=== PATIENT | male | born 1940 | race Caucasian/White ===

== ENCOUNTER 2019-06-22 20:42 | Observation (INO) ==
[2019-06-22] MEDS ORDERED: FAMOTIDINE 20MG/5ML IV PUSH IV STA (20:59)
--- NOTE | 2019-06-22 21:17 | Emergency Department Note ---
History of Present Illness General Chief complaint: Cardiac Assessment Stated complaint: CHEST PAIN, CARDIAC HX Time Seen by Provider: 06/22/19 20:52 Source: patient Mode of arrival: ambulatory Limitations: no limitations History of Present Illness Provider complaint: chest pain Onset (ago): hour(s) 1 Location: chest Radiation: neck and extremity Severity: moderate and similar to prior episodes Pain Consistency: + constant Maximum Pain Intensity: 8 Current Pain Intensity: 0 Quality: + sharp and + constant Relieved By: + other (nitro) Exacerbated By: + none Associated symptoms: + diaphoresis Treatments prior to arrival: other (nitro x 2) This is a 79-year-old male with a hx CAD s/p stenting, complaining of acute onset of sharp and severe chest pain today with radiation into the neck and jaw and radiation into the right upper extremity. No radiation of the back. Patient states a feeling slightly "queasy" and "clammy". No overt nausea or vomiting, no dizziness or lightheadedness. Patient was sitting and reading at the onset of pain. Patient had walked the dog earlier in the day without any symptoms during exertion. Patient has had 2 heart attacks according to his report and has multiple stents. Patient does follow with Dr. Chapman periodically. No other recent change in diet or activity. No recent medication changes. No recent illness including fevers or chills. Patient took 1 nitro understanding at home and waited 5 minutes and then took a second. By the time of his arrival here, patient states the pain had abated. Patient states he is currently pain-free. Denies any recent food or drink that could induce GERD/reflux. No prior history of significant recurrent reflux symptoms. Home Medications Home Medications Medication Instructions Recorded Confirmed Type ICaps AREDS 1 cap PO BID 06/22/19 06/22/19 History acetaminophen [Tylenol] 650 mg PO Q6H PRN 06/22/19 06/22/19 History amlodipine 2.5 mg PO DAILY 06/22/19 06/22/19 History aspirin [Aspir-81] 81 mg PO DAILY 06/22/19 06/22/19 History atorvastatin 40 mg PO HS 06/22/19 06/22/19 History clopidogrel 75 mg PO DAILY 06/22/19 06/22/19 History levothyroxine 137 mcg PO DAILY 06/22/19 06/22/19 History lisinopril 10 mg PO DAILY 06/22/19 06/22/19 History metoprolol succinate 50 mg PO DAILY 06/22/19 06/22/19 History nitroglycerin [Nitrostat] 0.4 mg SUBLINGUAL UD 06/22/19 06/22/19 History ranitidine HCl 75 mg PO DAILY PRN 06/22/19 06/22/19 History triamcinolone acetonide 1 applic TOPICAL BID PRN 06/22/19 06/22/19 History Allergies Allergy/AdvReac Type Severity Reaction Status Date / Time No Known Allergies Allergy Unverified 06/22/19 22:45 Past Med/Surg History Medical History CAD (coronary artery disease) Social History Preferred Language: [place] Beliefs That Will Affect Care: None Current Living Situation: Spouse Other Information That Helps Us Care for You: No Feels Safe at Home: Yes Safety Concerns: Feels Safe At This Time Smoking Status: Former smoker Hx Alcohol Use: Yes Alcohol type: beer Hx Substance Use: No Review of Systems See HPI for pertinent positives & negatives. and A total of 10 systems reviewed and were otherwise negative Physical Exam Vital Signs Vital Signs - 24 hr 06/22/19 20:47 06/22/19 21:08 06/22/19 21:12 Sepsis Recent Fever Within 48 Hours No Sepsis Action Taken by Nursing No Action Required Pulse Rate 73 72 71 Pulse Rate from SpO2 Sensor 72 73 Pulse Rhythm Regular Pulse Strength Normal Respiratory Rate 18 23 22 Respiratory Effort / Characteristics Non-Labored Spontaneous Respiratory Depth Normal Respiratory Pattern Regular Blood Pressure 135/72 128/70 Blood Pressure Mean 93 89 Blood Pressure Position Sitting Pulse Oximetry 98 98 98 Oxygen Delivery Method Room Air 06/22/19 21:30 06/22/19 22:00 06/22/19 22:30 Sepsis Recent Fever Within 48 Hours Sepsis Action Taken by Nursing Pulse Rate 66 67 58 L Pulse Rate from SpO2 Sensor 65 66 59 L Pulse Rhythm Pulse Strength Respiratory Rate 24 22 28 H Respiratory Effort / Characteristics Respiratory Depth Respiratory Pattern Blood Pressure 110/66 116/70 139/72 Blood Pressure Mean 80 85 94 Blood Pressure Position Pulse Oximetry 96 97 98 Oxygen Delivery Method Room Air 06/22/19 23:00 Sepsis Recent Fever Within 48 Hours Sepsis Action Taken by Nursing Pulse Rate 62 Pulse Rate from SpO2 Sensor 62 Pulse Rhythm Pulse Strength Respiratory Rate 19 Respiratory Effort / Characteristics Respiratory Depth Respiratory Pattern Blood Pressure 129/81 Blood Pressure Mean 97 Blood Pressure Position Pulse Oximetry 95 Oxygen Delivery Method Room Air GENERAL: alert, well appearing, well nourished, no distress, non-toxic EYE EXAM: normal conjunctiva, PERRL and EOM's grossly intact OROPHARYNX: no exudate, no erythema, lips, buccal mucosa, and tongue normal and mucous membranes are moist NECK: supple, no nuchal rigidity, no adenopathy, non-tender LUNGS: Clear to auscultation. Normal chest wall mechanics, no w/r/r HEART: no murmurs, S1 normal and S2 normal, no reproducible chest wall tenderness ABDOMEN: abdomen soft, non-tender, normo-active bowel sounds, no masses, no rebound or guarding. BACK: Back is symmetrical on inspection and there is no deformity, no midline tenderness, no CVA tenderness. SKIN: no rashes and no bruising UPPER EXTREMITIES: upper extremities are grossly normal. FROM, nml pulses b/l. LOWER EXTREMITIES: No pitting edema. FROM, nml pulses b/l. NEURO EXAM: Normal sensorium, cranial nerves II-XII grossly intact, normal speech, no gross weakness of arms, no gross weakness of legs. Gross sensation intact. Course 2210: Patient reevaluated at bedside. No recurrence of any pain. Updated on results so far. 2218: [facility]. Consultations Consultation #1: Case discussed with Dr. San. Time: 22:18 Administered Medications Discontinued Medications Amlodipine Besylate (Norvasc) 2.5 mg PO DAILY COLIN Stop: 07/23/19 08:59 Last Admin: 06/23/19 07:28 Dose: 2.5 mg Documented by: [id number] Aspirin (Ecotrin Ectab) 81 mg PO DAILY COLIN Stop: 07/23/19 08:59 Last Admin: 06/23/19 07:27 Dose: 81 mg Documented by: [id number] Clopidogrel Bisulfate (Plavix) 75 mg PO DAILY COLIN Stop: 07/23/19 08:59 Last Admin: 06/23/19 07:27 Dose: 75 mg Documented by: [id number] Famotidine (Pepcid 20mg Iv Push) 20 mg IV ONE STA Stop: 06/22/19 21:00 Last Admin: 06/22/19 21:21 Dose: 20 mg Documented by: [id number] Levothyroxine Sodium (Levothyroxine Sodium) 137 mcg PO DAILYBB COLIN Stop: 07/23/19 06:29 Last Admin: 06/23/19 06:18 Dose: 137 mcg Documented by: [id number] Lisinopril (Zestril) 10 mg PO DAILY COLIN Stop: 07/23/19 08:59 Last Admin: 06/23/19 07:29 Dose: 10 mg Documented by: [id number] Metoprolol Succinate (Toprol Xl) 50 mg PO DAILY COLIN Stop: 07/23/19 08:59 Last Admin: 06/23/19 07:31 Dose: 50 mg Documented by: [id number] Multivitamins/Minerals (Multivitamin W/ Minerals Tab) 1 tab PO BID COLIN Stop: 07/23/19 08:59 Last Admin: 06/23/19 07:25 Dose: 1 tab Documented by: [id number] Perflutren Lipid Microsphere (Definity) 2 ml IV ONCE ONE Stop: 06/23/19 10:07 Last Admin: 06/23/19 10:07 Dose: 2 ml Documented by: [id number] Ranitidine HCl (Zantac) 75 mg PO DAILY PRN PRN Reason: Gi Upset Stop: 07/23/19 00:12 Last Admin: 06/23/19 07:26 Dose: 75 mg Documented by: [id number] Medical Decision Making Differential Diagnosis Differential diagnoses includes but is not limited to acute coronary syndrome, myocardial infarction, pericarditis, pulmonary embolus, aortic dissection, pneumonia, pneumothorax, musculoskeletal, shingles, esophageal. Medical Records Attestation: I reviewed the patient's medical records. Home Medications Current Medication List: was personally reviewed by me Laboratory Data Attestation: I reviewed the patient's lab results. Result diagrams: 06/23/19 06:15 06/23/19 06:15 Lab Results 06/22/19 06/22/19 06/22/19 Range/Units 21:14 21:14 21:14 WBC 6.53 (4.8-10.8) K/uL RBC 4.86 (4.7-6.1) M/uL Hgb 14.9 (14.0-18.0) g/dL Hct 42.5 (42-52) % MCV 87.4 (80-100) fL MCH 30.7 (25-34) pg MCHC 35.1 (32-36) g/dL RDW Std Deviation 42.1 (36.4-46.3) fL RDW Coeff of Erma 13.2 (11.5-14.5) % Plt Count 170 (130-400) K/uL MPV 10.1 (7.4-10.4) fL Immature Gran % (Auto) 0.2 % Neut % (Auto) 44.9 % Lymph % (Auto) 41.2 % [place] % (Auto) 9.0 % Eos % (Auto) 4.4 % Baso % (Auto) 0.3 % Immature Gran # (Auto) 0.01 (0.00-0.02) K/uL Neut # (Auto) 2.93 (1.4-6.5) K/uL Lymph # (Auto) 2.69 (1.2-3.4) K/uL [place] # (Auto) 0.59 (0.11-0.59) K/uL Eos # (Auto) 0.29 (0-0.5) K/uL Baso # (Auto) 0.02 (0-0.2) K/uL PT 10.3 (9.0-12.0) Seconds INR 1.0 (0.9-1.1) D-Dimer 390 (0-500) ug/L FEU Sodium 143 (136-145) mmol/L Potassium 3.8 (3.5-5.1) mmol/L Chloride 109 H (98-107) mmol/L Carbon Dioxide 28 (21-32) mmol/L Anion Gap 7.0 (3-11) BUN 21 H (7-18) mg/dl Creatinine 1.07 (0.6-1.4) mg/dl Est Cr Clr Drug Dosing 58.9 ml/min Est GFR ( Amer) 76.1 Est GFR (Non-Af Amer) 65.7 BUN/Creatinine Ratio 19.4 (10-20) Glucose 120 H (70-99) mg/dl Calcium 9.3 (8.5-10.1) mg/dl Magnesium 2.1 (1.8-2.4) mg/dl Total Bilirubin 0.6 (0.2-1) mg/dl AST 25 (15-37) U/L ALT 31 (12-78) U/L Alkaline Phosphatase 156 H (45-117) U/L POC Troponin I (0-0.045) ng/ml Troponin I < 0.015 (0-0.045) ng/ml NT-Pro-B Natriuret Pep 69 (0-1800) pg/ml Total Protein 6.9 (6.4-8.2) gm/dl Albumin 4.0 (3.4-5.0) gm/dl Globulin 2.9 (2.5-4.0) gm/dl Albumin/Globulin Ratio 1.4 (0.9-2) Lipase 150 (73-393) U/L 06/22/19 Range/Units 21:24 WBC (4.8-10.8) K/uL RBC (4.7-6.1) M/uL Hgb (14.0-18.0) g/dL Hct (42-52) % MCV (80-100) fL MCH (25-34) pg MCHC (32-36) g/dL RDW Std Deviation (36.4-46.3) fL RDW Coeff of Erma (11.5-14.5) % Plt Count (130-400) K/uL MPV (7.4-10.4) fL Immature Gran % (Auto) % Neut % (Auto) % Lymph % (Auto) % [place] % (Auto) % Eos % (Auto) % Baso % (Auto) % Immature Gran # (Auto) (0.00-0.02) K/uL Neut # (Auto) (1.4-6.5) K/uL Lymph # (Auto) (1.2-3.4) K/uL [place] # (Auto) (0.11-0.59) K/uL Eos # (Auto) (0-0.5) K/uL Baso # (Auto) (0-0.2) K/uL PT (9.0-12.0) Seconds INR (0.9-1.1) D-Dimer (0-500) ug/L FEU Sodium (136-145) mmol/L Potassium (3.5-5.1) mmol/L Chloride (98-107) mmol/L Carbon Dioxide (21-32) mmol/L Anion Gap (3-11) BUN (7-18) mg/dl Creatinine (0.6-1.4) mg/dl Est Cr Clr Drug Dosing ml/min Est GFR ( Amer) Est GFR (Non-Af Amer) BUN/Creatinine Ratio (10-20) Glucose (70-99) mg/dl Calcium (8.5-10.1) mg/dl Magnesium (1.8-2.4) mg/dl Total Bilirubin (0.2-1) mg/dl AST (15-37) U/L ALT (12-78) U/L Alkaline Phosphatase (45-117) U/L POC Troponin I < 0.03 (0-0.045) ng/ml Troponin I (0-0.045) ng/ml NT-Pro-B Natriuret Pep (0-1800) pg/ml Total Protein (6.4-8.2) gm/dl Albumin (3.4-5.0) gm/dl Globulin (2.5-4.0) gm/dl Albumin/Globulin Ratio (0.9-2) Lipase (73-393) U/L Imaging Data Radiologist's Impression: SINGLE VIEW CHEST CLINICAL HISTORY: Atypical chest pain. FINDINGS: An AP, portable, upright chest radiograph is obtained. No prior studies are available for comparison at the time of dictation. The examination is degraded by portable technique and patient rotation. The cardiomediastinal silhouette is unremarkable noting atherosclerotic calcification of the thoracic aorta. Calcified mediastinal and hilar lymph nodes are suggested. There is elevation of the right hemidiaphragm and bibasilar atelectasis. No airspace consolidation or large pleural effusion is identified. No pneumothorax is seen. The skeletal structures are osteopenic. The bony thorax is grossly intact. IMPRESSION: No acute cardiopulmonary abnormality. Electronically signed by: Jermain Caldwell M.D. 06/22/2019 9:31 PM ECG Data Attestation: I personally reviewed and interpreted this ECG as follows: Indication: chest pain Rate (beats per minute): 64 Rhythm: normal sinus Findings: no T-wave inversion, no ST elevation, no acute ischemic change, no left axis deviation and no ectopy Blood Pressure Blood Pressure Findings: Normal blood pressure MDM Narrative Patient here presenting with concerning story for chest pain that is similar to to prior heart attacks. Patient does follow with Dr. Chapman. Patient was pain- free by arrival here as he had taken nitro at home prior to arrival. Patient's first troponin negative and EKG reassuring. Patient hemodynamically stable. No symptoms to suggest dissection at this time. I do not suspect tamponade, effusion, occult pneumonia, perforation, GI bleed, PE. I do not suspect hypertensive emergency. Patient aware of all results in agreement with plan for additional observation and serial cardiac enzymes. Aware of need for possible additional cardiology evaluation and testing. Case discussed with hospitalist. Impression & Plan Chest pain Discharge Plan Visit Data *Final* Discharge Date/Time: 06/22/19 23:53 Chief Complaint: Cardiac Assessment Stated Complaint: CHEST PAIN, CARDIAC HX ED Provider: Christiana Sharpe Discharge Problem: Chest pain Patient Disposition: Admitted As Inpatient Condition: Good Discharge Instructions Interventions: ED Discharge Assessment Last Done: 06/22/19 23:53 Discharge Problem: Chest pain Qualifiers: Chest pain type: unspecified Qualified Code(s): R07.9 - Chest pain, unspecified
[2019-06-22 21:25] LABS: Basophils # (auto) 0.02 K/uL (0-0.2); Basophils % (auto) 0.3 %; Eosinophils # (auto) 0.29 K/uL (0-0.5); Eosinophils % (auto) 4.4 %; Hematocrit (blood only) 42.5 % (42-52); Hemoglobin 14.9 g/dL (14.0-18.0); Immature Granulocytes # (auto) 0.01 K/uL (0.00-0.02); Immature Granulocytes % (auto) 0.2 %; Lymphocytes # (auto) 2.69 K/uL (1.2-3.4); Lymphocytes % (auto) 41.2 %; Mean Corpuscular Hgb Conc 35.1 g/dL (32-36); Mean Corpuscular Volume 87.4 fL (80-100); Mean Platelet Volume 10.1 fL (7.4-10.4); Monocytes # (auto) 0.59 K/uL (0.11-0.59); Neutrophils # (auto) 2.93 K/uL (1.4-6.5); Neutrophils % (auto) 44.9 %; Platelet Count 170 K/uL (130-400); RDW Coefficient of Variation 13.2 % (11.5-14.5); RDW Standard Deviation 42.1 fL (36.4-46.3); Red Blood Count 4.86 M/uL (4.7-6.1); White Blood Count 6.53 K/uL (4.8-10.8)
--- NOTE | 2019-06-22 21:33 | XRay Report ---
SINGLE VIEW CHEST CLINICAL HISTORY: Atypical chest pain. FINDINGS: An AP, portable, upright chest radiograph is obtained. No prior studies are available for c omparison at the time of dictation. The examination is degraded by portable technique and patient rot ation. The cardiomediastinal silhouette is unremarkable noting atherosclerotic calcification of the thoracic aorta. Calcified mediastinal and hilar lymph nodes are suggested. There is elevation of the right hemidiaphragm and bibasilar atelectasis. No airspace consolidation or large pleural effusion is identified. No pneumothorax is seen. The skeletal structures are osteopenic. The bony thorax is treva sly intact. IMPRESSION: No acute cardiopulmonary abnormality. Electronically signed by: Jermain Caldwell M.D. 06/22/2019 9:31 PM
[2019-06-22 21:46] LABS: D Dimer 390 ug/L FEU (0-500); Prothrombin Time 10.3 Seconds (9.0-12.0)
[2019-06-22 21:57] LABS: Alanine Aminotransferase 31 U/L (12-78); Aspartate Aminotransferase 25 U/L (15-37); BUN Creatinine Ratio 19.4 (10-20); Blood Urea Nitrogen 21 mg/dl (7-18); Calcium 9.3 mg/dl (8.5-10.1); Carbon Dioxide 28 mmol/L (21-32); Chloride 109 mmol/L (98-107); Creatinine Clr Calc Pharmacy 58.9 ml/min; Est GFR (African American) 76.1; Est GFR (Non-African American) 65.7; Glucose 120 mg/dl (70-99); Magnesium 2.1 mg/dl (1.8-2.4); Potassium 3.8 mmol/L (3.5-5.1); Sodium 143 mmol/L (136-145)
[2019-06-22 22:02] LABS: Albumin Globulin Ratio 1.4 (0.9-2); Alkaline Phosphatase 156 U/L (45-117); Bilirubin,Total 0.6 mg/dl (0.2-1); Globulin 2.9 gm/dl (2.5-4.0); NT Pro B Type Natriuretic Pept 69 pg/ml (0-1800); Total Protein 6.9 gm/dl (6.4-8.2); Troponin I < 0.015 ng/ml (0-0.045)
[2019-06-23] MEDS ORDERED: POLYETHYLENE (MIRALAX) 17 GM PACK PO PRN (00:13)
[2019-06-23] MEDS ORDERED: ONDANSETRON INJ 2 MG/ML 2 ML VIAL IV PRN (00:13)
[2019-06-23] MEDS ORDERED: NITROGLYCERIN SL 0.4 MG/TAB TAB SL PRN (00:13)
[2019-06-23] MEDS ORDERED: NITROGLYCERIN SL 0.4 MG/TAB TAB SL SCH (00:13)
[2019-06-23] MEDS ORDERED: TRIAMCINOLONE ACET 0.1% CR 15 GM TUBE TOP PRN (00:13)
[2019-06-23] MEDS ORDERED: ACETAMINOPHEN 325 MG TAB PO PRN ×2 (00:13)
--- NOTE | 2019-06-23 00:56 | History and Physical Report ---
DATE OF ADMISSION: 06/22/2019 CHIEF COMPLAINT: Chest pain. HISTORY OF PRESENT ILLNESS: This 79-year-old male with past medical history significant for ID, hypertension, venous insufficiency, hyperlipidemia, hypothyroidism, asymptomatic varicose veins of the right lower extremity, presents with chest pain. The patient was sitting and reading a book when he noticed chest pain in the center of his chest, 6-7/10 in severity, sharp pain with mild radiation to his right jaw, at that time he felt somewhat cold and sweaty. No dizziness, no nausea, no vomiting and he took 2 nitroglycerin, and after 15 minutes, the pain subsided and he came to the hospital. Currently, he is pain free, resting comfortably and hemodynamically stable. Has some mild headache, no blurred vision, no earache, no runny nose, no sore throat, no difficulty swallowing. Appetite is good. He thinks he gained weight a little bit because he was not eating healthy. Ambulates ok. Climbing steps does not bring any chest pain. No recent fever or chills. Has some occasional cough, no abdominal pain. Normal bowel and bladder movements. No hematuria, no burning micturition, no black stools, no blood in the stools. His right lower extremity is slightly swollen than the left chronically. No erythema, no rash. ALLERGIES: No known drug allergies. PAST MEDICAL HISTORY: As mentioned above. PAST SURGICAL HISTORY: No past surgical history on file. MEDICATIONS: The patient is on levothyroxine 137 mcg daily, zantac 75mg p.o. daily p.r.n., amlodipine 2.5 mg p.o. daily, atorvastatin 40 mg p.o. daily, Plavix 75 mg p.o. daily, lisinopril 10 mg p.o. daily, Toprol-XL 50 mg p.o. daily, Tylenol 650 mg p.o. q.6 hours p.r.n., multivitamins 1 tablet b.i.d., nitroglycerin 0.4 mg sublingual p.r.n., aspirin 81 mg p.o. daily. FAMILY HISTORY: Significant for mother had cancer and thyroid disorder. Father had glaucoma, heart disorder. Maternal grandmother had diabetes, stroke, thyroid disorder. SOCIAL HISTORY: . Former smoker, quit in 1981, smoked 1 pack a day for 27 years. Alcohol occasional. No drug use. REVIEW OF SYMPTOMS: As per HPI. Rest of the review of systems negative. PHYSICAL EXAMINATION: GENERAL: The patient is of moderate build, not in acute distress. VITAL SIGNS: Afebrile, pulse 62, respiratory rate 19, blood pressure 129/81, oxygen 95% on room air. HEENT: No pallor, no icterus. Pupils equal, round, and reactive to light. NECK: No JVD, no neck masses, no carotid bruits. CARDIOVASCULAR: S1, S2 heard, regular rate and rhythm, no murmur, no gallop. RESPIRATORY SYSTEM: Normal AP diameter. No thyromegaly. No wheezing, no crackles. ABDOMEN: Soft, bowel sounds present, nontender. No distention. CENTRAL NERVOUS SYSTEM: Cranial nerves II-XII grossly intact. Nonfocal. EXTREMITIES: Right lower extremity is slightly edematous, no erythema seen. LABORATORIES: WBC 6.5, hemoglobin 14.9, hematocrit 42.5, platelets 170. PT 10.5, INR 1. D-dimer 390. Sodium 143, potassium 3.8, chloride 109, bicarbonate 28, BUN 21, creatinine 1.07, serum glucose 120, calcium 9.3, magnesium 2.1, total bilirubin 0.6, AST 25, ALT 31, alkaline phosphatase 156. Troponin I less than 0.015. Lipase 150. Chest x-ray: No acute cardiopulmonary findings. EKG: Normal sinus rhythm with rate of 64, no acute ST-T changes seen. ASSESSMENT AND PLAN: This is a 79-year-old male who presents with chest pain. 1. Chest pain. 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 Follows with cardiology. Currently, his initial workup is negative. We will observe in telemetry floor. Serial cardiac enzymes and echocardiogram. Continue his home medications of aspirin, statin, Plavix, and Toprol-XL. We will keep him on n.p.o. until seen by cardiology. 2. History of hypertension. Continue Toprol-XL, lisinopril, amlodipine. We will monitor his blood pressure. 3. Hypothyroidism. Continue Synthroid. 4. Hyperlipidemia. Continue statin. Follow his fasting lipid profile. 5. Deep vein thrombosis prophylaxis, sequential compression devices for now. 6. Disposition: Observation in telemetry floor. Expect to discharge home and follow with his family doctor. Level 1 full code. ERROLD
[2019-06-23] MEDS ORDERED: LEVOTHYROXINE SODIUM 137 MCG TABLET PO SCH (06:30)
[2019-06-23 06:34] LABS: Basophils # (auto) 0.02 K/uL (0-0.2); Basophils % (auto) 0.3 %; Eosinophils # (auto) 0.26 K/uL (0-0.5); Eosinophils % (auto) 4.4 %; Hemoglobin 14.3 g/dL (14.0-18.0); Immature Granulocytes # (auto) 0.01 K/uL (0.00-0.02); Immature Granulocytes % (auto) 0.2 %; Lymphocytes # (auto) 1.97 K/uL (1.2-3.4); Lymphocytes % (auto) 33.4 %; Mean Corpuscular Hgb Conc 34.9 g/dL (32-36); Mean Corpuscular Volume 86.5 fL (80-100); Mean Platelet Volume 9.7 fL (7.4-10.4); Monocytes # (auto) 0.59 K/uL (0.11-0.59); Neutrophils # (auto) 3.05 K/uL (1.4-6.5); Neutrophils % (auto) 51.7 %; Platelet Count 147 K/uL (130-400); RDW Standard Deviation 41.3 fL (36.4-46.3); Red Blood Count 4.74 M/uL (4.7-6.1)
[2019-06-23 07:03] LABS: BUN Creatinine Ratio 20.2 (10-20); Calcium 8.9 mg/dl (8.5-10.1); Creatinine Clr Calc Pharmacy 65.9 ml/min; Est GFR (African American) 94.7; Est GFR (Non-African American) 81.7; Potassium 3.9 mmol/L (3.5-5.1)
[2019-06-23] MEDS ORDERED: ASPIRIN 81 MG ECTAB PO SCH (09:00)
[2019-06-23] MEDS ORDERED: AMLODIPINE BESYLATE 5 MG TAB PO SCH (09:00)
[2019-06-23] MEDS ORDERED: CEROVITE ADV FORMULA TAB PO SCH (09:00)
[2019-06-23] MEDS ORDERED: CLOPIDOGREL BISULFATE 75 MG TAB PO SCH (09:00)
[2019-06-23] MEDS ORDERED: LISINOPRIL 10 MG TAB PO SCH (09:00)
[2019-06-23] MEDS ORDERED: METOPROLOL SUCC 50MG EXT REL TAB PO SCH (09:00)
[2019-06-23] MEDS ORDERED: PERFLUTREN LIPID MICROSPHERE (DEFINITY) IV ONE (10:06)
--- NOTE | 2019-06-23 10:26 | Cardiology Consultation ---
Date of Consultation June 23, 2019 Assessment & Plan (1) Chest pain: (2) CAD (coronary artery disease): I believe the patient's chest pain was atypical. He is also had negative cardiac markers and a normal EKG on presentation. I do not believe any additional cardiac testing needs to be performed in hospital. I believe the patient may be discharged and I will arrange for a follow-up exercise stress test as an outpatient. History of Present Illness Attending Physician: Vi Tracy MD History of Present Illness This is a 79-year-old very active male patient who follows with Molina Orellana and Ahmet Chapman. He has a history of ischemic heart disease that started in the early . His last coronary intervention was in 2007 when he received a coronary stent within the LAD. The patient has been stable for many years. He was sitting and relaxing reading a novel when he had a sudden onset of what he describes as sharp chest discomfort. Although he almost never uses sublingual nitroglycerin he does keep fresh bottle available and so he took 1 without any relief. He then took a second 1 and had his son drive him to the emergency department. The second sublingual nitroglycerin did not improve his discomfort however, after arrival at the emergency department his discomfort spontaneously resolved. He considered whether or not he should just return home but at the encouragement of his family he decided to come into the ER. He has been admitted. His cardiac troponins are negative and his EKG is within normal limits. He has no complaints today. He has had no recent activity related chest pain. He is very active and walks his dog at least 1 or 2 miles daily also mows his own lawn without difficulty. He does not smoke. He has no history of diabetes. Allergies Allergy/AdvReac Type Severity Reaction Status Date / Time No Known Allergies Allergy Unverified 06/22/19 22:45 Home Medications Home Medications Medication Instructions Recorded Confirmed Type acetaminophen [Tylenol] 650 mg PO Q6H PRN 06/22/19 06/22/19 History amlodipine 2.5 mg PO DAILY 06/22/19 06/22/19 History aspirin [Aspir-81] 81 mg PO DAILY 06/22/19 06/22/19 History atorvastatin 40 mg PO HS 06/22/19 06/22/19 History clopidogrel 75 mg PO DAILY 06/22/19 06/22/19 History levothyroxine 137 mcg PO DAILY 06/22/19 06/22/19 History lisinopril 10 mg PO DAILY 06/22/19 06/22/19 History metoprolol succinate 50 mg PO DAILY 06/22/19 06/22/19 History nitroglycerin [Nitrostat] 0.4 mg SUBLINGUAL UD 06/22/19 06/22/19 History ranitidine HCl 75 mg PO DAILY PRN 06/22/19 06/22/19 History triamcinolone acetonide 1 applic TOPICAL BID PRN 06/22/19 06/22/19 History vitamins A,C,[id number] [ICaps 1 cap PO BID 06/22/19 06/22/19 History AREDS] Patient History Medical History CAD (coronary artery disease) Social History Preferred Language: Tanz[place] Beliefs That Will Affect Care: None Current Living Situation: Spouse Other Information That Helps Us Care for You: No Feels Safe at Home: Yes Safety Concerns: Feels Safe At This Time Smoking Status: Former smoker Hx Alcohol Use: Yes Alcohol type: beer Hx Substance Use: No Review of Systems Review of Systems: All systems reviewed & are unremarkable except as noted in HPI & below Nothing additional to add. Physical Exam Physical Exam: General: no acute distress and stated age Head: normocephalic, no masses, lesions, tenderness or abnormalities Eyes: conjunctiva are pink and non-injected, sclera clear Neck: supple, no adenopathy, no bruits, normal jugular venous pulse, no hepatojugular reflux Chest: normal shape and normal respiratory effort Lungs: clear to auscultation and percussion Cardiac Exam: - regular rate & rhythm, no murmurs gallops or rubs - normal S1, normal S2 Pulses: 2(+) throughout Abdomen: abdomen soft, non-tender, no abnormal masses and no hepatosplenomegaly Musculoskeletal: no gait disturbance, no joint inflammation, no deforming arthritis Extremities: no edema and no cyanosis Neuro: grossly normal exam Results & Data Vital Signs (Past 12 Hours) Vital Signs Temp Pulse Pulse Resp BP BP Pulse Ox 06/23/19 07:32 62 06/23/19 07:01 36.5 C 58 L 18 146/67 H 96 08/11/19 00:06 36.6 C 60 20 139/84 99 06/22/19 23:53 62 19 129/73 97 06/22/19 23:00 62 19 129/81 95 06/22/19 22:30 58 L 28 H 139/72 98 Laboratory Results Laboratory Results - last 24 hr 06/22/19 06/22/19 06/22/19 21:14 21:14 21:14 WBC 6.53 RBC 4.86 Hgb 14.9 Hct 42.5 MCV 87.4 MCH 30.7 MCHC 35.1 RDW Std Deviation 42.1 RDW Coeff of Erma 13.2 Plt Count 170 MPV 10.1 Immature Gran % (Auto) 0.2 Neut % (Auto) 44.9 Lymph % (Auto) 41.2 [place] % (Auto) 9.0 Eos % (Auto) 4.4 Baso % (Auto) 0.3 Immature Gran # (Auto) 0.01 Neut # (Auto) 2.93 Lymph # (Auto) 2.69 [place] # (Auto) 0.59 Eos # (Auto) 0.29 Baso # (Auto) 0.02 PT 10.3 INR 1.0 D-Dimer 390 Sodium 143 Potassium 3.8 Chloride 109 H Carbon Dioxide 28 Anion Gap 7.0 BUN 21 H Creatinine 1.07 Est Cr Clr Drug Dosing 58.9 Est GFR ( Amer) 76.1 Est GFR (Non-Af Amer) 65.7 BUN/Creatinine Ratio 19.4 Glucose 120 H Calcium 9.3 Magnesium 2.1 Total Bilirubin 0.6 AST 25 ALT 31 Alkaline Phosphatase 156 H POC Troponin I Troponin I < 0.015 NT-Pro-B Natriuret Pep 69 Total Protein 6.9 Albumin 4.0 Globulin 2.9 Albumin/Globulin Ratio 1.4 Triglycerides Cholesterol LDL Cholesterol, Calc VLDL Cholesterol, Calc HDL Cholesterol Cholesterol/HDL Ratio Lipase 150 TSH 06/22/19 06/23/19 06/23/19 21:24 00:30 06:15 WBC 5.90 RBC 4.74 Hgb 14.3 Hct 41.0 L MCV 86.5 MCH 30.2 MCHC 34.9 RDW Std Deviation 41.3 RDW Coeff of Erma 13.0 Plt Count 147 MPV 9.7 Immature Gran % (Auto) 0.2 Neut % (Auto) 51.7 Lymph % (Auto) 33.4 [place] % (Auto) 10.0 Eos % (Auto) 4.4 Baso % (Auto) 0.3 Immature Gran # (Auto) 0.01 Neut # (Auto) 3.05 Lymph # (Auto) 1.97 [place] # (Auto) 0.59 Eos # (Auto) 0.26 Baso # (Auto) 0.02 PT INR D-Dimer Sodium Potassium Chloride Carbon Dioxide Anion Gap BUN Creatinine Est Cr Clr Drug Dosing Est GFR ( Amer) Est GFR (Non-Af Amer) BUN/Creatinine Ratio Glucose Calcium Magnesium Total Bilirubin AST ALT Alkaline Phosphatase POC Troponin I < 0.03 Troponin I < 0.015 NT-Pro-B Natriuret Pep Total Protein Albumin Globulin Albumin/Globulin Ratio Triglycerides Cholesterol LDL Cholesterol, Calc VLDL Cholesterol, Calc HDL Cholesterol Cholesterol/HDL Ratio Lipase TSH 06/23/19 06/23/19 06:15 06:15 WBC RBC Hgb Hct MCV MCH MCHC RDW Std Deviation RDW Coeff of Erma Plt Count MPV Immature Gran % (Auto) Neut % (Auto) Lymph % (Auto) [place] % (Auto) Eos % (Auto) Baso % (Auto) Immature Gran # (Auto) Neut # (Auto) Lymph # (Auto) [place] # (Auto) Eos # (Auto) Baso # (Auto) PT INR D-Dimer Sodium 142 Potassium 3.9 Chloride 109 H Carbon Dioxide 27 Anion Gap 6.0 BUN 18 Creatinine 0.88 Est Cr Clr Drug Dosing 65.9 Est GFR ( Amer) 94.7 Est GFR (Non-Af Amer) 81.7 BUN/Creatinine Ratio 20.2 H Glucose 99 Calcium 8.9 Magnesium 2.0 Total Bilirubin AST ALT Alkaline Phosphatase POC Troponin I Troponin I < 0.015 NT-Pro-B Natriuret Pep Total Protein Albumin Globulin Albumin/Globulin Ratio Triglycerides 93 Cholesterol 125 LDL Cholesterol, Calc 54 VLDL Cholesterol, Calc 19 HDL Cholesterol 52 Cholesterol/HDL Ratio 2 Lipase TSH 1.810 Medications Administered Current Inpatient Medications Acetaminophen (Tylenol) 650 mg PO Q4H PRN PRN Reason: Pain or Fever Stop: 07/23/19 00:12 Amlodipine Besylate (Norvasc) 2.5 mg PO DAILY [facility] Stop: 07/23/19 08:59 Last Admin: 06/23/19 07:28 Dose: 2.5 mg Documented by: Aspirin (Ecotrin Ectab) 81 mg PO DAILY [facility] Stop: 07/23/19 08:59 Last Admin: 06/23/19 07:27 Dose: 81 mg Documented by: Atorvastatin Calcium (Lipitor) 40 mg PO HS [facility] Stop: 07/23/19 20:59 Clopidogrel Bisulfate (Plavix) 75 mg PO DAILY [facility] Stop: 07/23/19 08:59 Last Admin: 06/23/19 07:27 Dose: 75 mg Documented by: Levothyroxine Sodium (Levothyroxine Sodium) 137 mcg PO DAILYBB [facility] Stop: 07/23/19 06:29 Last Admin: 06/23/19 06:18 Dose: 137 mcg Documented by: Lisinopril (Zestril) 10 mg PO DAILY [facility] Stop: 07/23/19 08:59 Last Admin: 06/23/19 07:29 Dose: 10 mg Documented by: Metoprolol Succinate (Toprol Xl) 50 mg PO DAILY [facility] Stop: 07/23/19 08:59 Last Admin: 06/23/19 07:31 Dose: 50 mg Documented by: Multivitamins/Minerals (Multivitamin W/ Minerals Tab) 1 tab PO BID [facility] Stop: 07/23/19 08:59 Last Admin: 06/23/19 07:25 Dose: 1 tab Documented by: Nitroglycerin (Nitrostat) 0.4 mg SL UD PRN PRN Reason: Chest Pain Stop: 07/23/19 00:12 Ondansetron HCl (Zofran) 4 mg IV Q6H PRN PRN Reason: Nausea Stop: 07/23/19 00:12 Perflutren Lipid Microsphere (Definity) 2 ml IV ONCE ONE Stop: 06/23/19 10:07 Last Admin: 06/23/19 10:07 Dose: 2 ml Documented by: Polyethylene Glycol (Miralax Powder Packet) 17 gm PO DAILY PRN PRN Reason: Constipation Stop: 07/23/19 00:12 Ranitidine HCl (Zantac) 75 mg PO DAILY PRN PRN Reason: Gi Upset Stop: 07/23/19 00:12 Last Admin: 06/23/19 07:26 Dose: 75 mg Documented by: Triamcinolone Acetonide (Kenalog 0.1%) 1 appln TOP BID PRN PRN Reason: IRRITATION OF SKIN Stop: 07/23/19 00:12 (1) Chest pain Chest pain type: unspecified Qualified Code(s): R07.9 - Chest pain, unspecified
[2019-06-23 10:57] VITALS: BP 143/75; TEMP 97.9; O2SAT 98
[2019-06-23 14:46] VITALS: PULSE 53
--- NOTE | 2019-06-23 19:28 | Discharge Summary ---
Date of Service June 23, 2019 Admission HPI Per Admitting Provider cc: Chente San MD~ DICTATED BY: Chente San MD DATE OF ADMISSION: 06/22/2019 CHIEF COMPLAINT: Chest pain. HISTORY OF PRESENT ILLNESS: This 79-year-old male with past medical history significant for MA, hypertension, venous insufficiency, hyperlipidemia, hypothyroidism, asymptomatic varicose veins of the right lower extremity, presents with chest pain. The patient was sitting and reading a book when he noticed chest pain in the center of his chest, 6-7/10 in severity, sharp pain with mild radiation to his right jaw, at that time he felt somewhat cold and sweaty. No dizziness, no nausea, no vomiting and he took 2 nitroglycerin, and after 15 minutes, the pain subsided and he came to the hospital. Currently, he is pain free, resting comfortably and hemodynamically stable. Has some mild headache, no blurred vision, no earache, no runny nose, no sore throat, no difficulty swallowing. Appetite is good. He thinks he gained weight a little bit because he was not eating healthy. Ambulates ok. Climbing steps does not bring any chest pain. No recent fever or chills. Has some occasional cough, no abdominal pain. Normal bowel and bladder movements. No hematuria, no burning micturition, no black stools, no blood in the stools. His right lower extremity is slightly swollen than the left chronically. No erythema, no rash. Principal Diagnosis CHEST PAIN /NON CARDIAC /NO EVIDENCE OF ACUTE CORONARY EVENT Discharge Exam GENERAL: No sign of distress, HEENT: Sclera nonicteric, pink-purple bilateral equal reactive to light extraocular muscle intact Normal oral mucosa, neck: No JVD, no thyromegaly, trachea midline Lungs: Clear to auscultate, no wheeze or rales Cardiovascular: Regular S1 and S2, no murmur or gallop, no JVD, no lower extremity edema Abdomen: Soft, nontender, bowel sounds active, no hepatosplenomegaly Extremities: No rash or deformity, normal joint, Neuro: No focal neurological deficit, no dysarthria, no facial droop Psych: Alert awake oriented x3: Euthymic Skin: No rash LYMPH NODES: No cervical lymphadenopathy Discharge Data Allergies Allergy/AdvReac Type Severity Reaction Status Date / Time No Known Allergies Allergy Unverified 08/10/19 22:45 Consultations 06/22/19 22:16 ED Decision to Admit Stat 06/23/19 08:00 Consult Cardiology Routine Hospital Course (1) Chest pain: presented with chest heaviness , resolved with SL nitro at present -no complain of similar symptom serial cardiac markers been negative /no ischemic changes note in EKG ECHO ; no wall motion abnormality normal EF appreciate input form cardiology -no evidence of ACS /chest discomfort is not related to angina recommends no change in meds stable to be discharged home Cardiology office will schedule out pt cardiac stress test (2) CAD (coronary artery disease): hx of CAD , s/p cardiac stent in 2007 no evidence of acute coronary event in this admission pt will be continued with his usual cardiac meds no new adjsutement needed cardiology input appreciated stable to be discharged home today out pt cardiology follow up and cardiac stress test will be arranged pt follows with Dr Pedrito Chapman /Molina Orellana PA-C in Cardiology clinic Total Time Total Time Spent Total Time Spent (In Minutes): approx 35 mins Total Time Includes: Examination of the Patient, Discharge Planning and Medication Reconciliation Discharge Plan Discharge Items Patient Disposition: Home - Self-Care Reason For Visit: CHEST PAIN Discharge Diagnosis: CHEST PAIN /NON CARDIAC /NO EVIDENCE OF ACUTE CORONARY EVENT Condition: Good Discharge Goals: Decrease discomfort and Diagnostic testing Activity: Resume your previous activity Non-emergency contact: Primary Care Provider Call non-emergency contact if: you have any medication questions Follow-up/Referrals: Deep Schroeder DO [Desktop Specialist] - (FOR CARDIAC STRESS TEST OFFICE WILL CALL WITH APPOINTMENT ) Diet: Heart Healthy Add Provider Instructions: FOLLOW UP WITH FAMILY PHYSICIAN DR MAURER ON Monday07/01/2019 @ 10: 45 AM CARDIOLOGY FOLLOW UP WITH DR SCHROEDER AT [facility] FOR CARDIAC STRESS TEST OFFICE WILL CALL YOU WITH APPOINTMENT Prescriptions: Continued clopidogrel 75 mg Tablet 75 mg PO DAILY RF: 0 triamcinolone acetonide 0.1 % Cream 1 applic TOPICAL BID PRN (Reason: Skin Irritation) RF: 0 acetaminophen [Tylenol] 325 mg Tablet 650 mg PO Q6H PRN (Reason: Fever Or Pain) RF: 0 metoprolol succinate 50 mg Tablet Extended Release 24 Hr 50 mg PO DAILY RF: 0 aspirin [Aspir-81] 81 mg Tablet,Delayed Release (Dr/Ec) 81 mg PO DAILY RF: 0 nitroglycerin [Nitrostat] 0.4 mg Tablet, Sublingual 0.4 mg sublingual UD RF: 0 ICaps AREDS [id number] Capsule 1 cap PO BID RF: 0 amlodipine 2.5 mg Tablet 2.5 mg PO DAILY RF: 0 ranitidine HCl 75 mg Tablet 75 mg PO DAILY PRN (Reason: Gi Upset) RF: 0 levothyroxine 137 mcg Tablet 137 mcg PO DAILY RF: 0 lisinopril 10 mg Tablet 10 mg PO DAILY RF: 0 atorvastatin 40 mg Tablet 40 mg PO HS RF: 0 Stand-Alone Forms: [employer] [facility]/Other Patient Handouts: CAD Discharge Orders: Discharge Order (Routine); Ordered 06/23/19 Ordered By: Vi Tracy Admission Data Admit Date/Time: 06/22/19 23:19 Attending Provider: Vi Tracy Admit Provider: Chente San Primary Care Provider: PCP,NO Other Providers: Chente San ; Xu Mike ; Joaquin Carranza ; Ahmet Chapman ; Venu Nguyen ; Deep Schroeder ; Molina Orellana ; Alie Edwards ; Emelyn Dallas Service: Telemetry Other Interventions: Discharge Summary Assessment (RN) Last Done: 06/23/19 14:41 DC Date/Time DO NOT enter until pt leaves facility: 06/23/19 15:10
[2019-06-23] MEDS ORDERED: ATORVASTATIN 40 MG TAB PO SCH (21:00)
== END 2019-06-23 15:10 | disposition home or self-care (01) ==
LOC: ED 20:42 → 2S 20:42